=== PATIENT | male | born 1995 | race Caucasian/White ===

== ENCOUNTER → 2020-02-15 | Outpatient (REF) | payer SELFPAY | LOC: M SFHCLUC 08:55 | PROVIDERS: ATTEND Physician Assistant | DX: J02.9 Acute pharyngitis, unspecified (principal) ==

== ENCOUNTER 2020-07-12 23:21 | Emergency (ER) | payer OTHER, SELFPAY ==
[~2020-07-12] VITALS: Ht 175.3 cm; Wt 75.2 kg
[2020-07-12] MEDS ORDERED: diphenhydrAMINE 50MG/ML VIAL (J1200) IM ONE (23:30)
[2020-07-12] MEDS ORDERED: HALOPERIDOL 5MG/ML VIAL (J1630 PER 1) IM ONE (23:30)
[2020-07-12] MEDS ORDERED: LORazepam 2 MG/ML VIAL IM ONE (23:30)
[2020-07-12 23:36] LABS: HEMATOCRIT 50.2 % (42.0-52.0); HEMOGLOBIN 15.9 g/dl (13.5-17.5); MEAN CORPUSCULAR HGB CONC 31.7 g/dl (32.0-36.5); MEAN CORPUSCULAR VOLUME 85.2 fl (80.0-96.0); PLATELET COUNT, AUTOMATED 255 10^3/uL (150-450); RED BLOOD COUNT 5.89 10^6/uL (4.30-6.10); WHITE BLOOD COUNT 7.6 10^3/uL (4.0-10.0)
[2020-07-13 00:15] LABS: ACETAMINOPHEN LEVEL < 2.0 UG/ML (10.0-30.0); ALBUMIN 4.5 GM/DL (3.2-5.2); ALT/SGPT 46 U/L (12-78); BILIRUBIN,DIRECT 0.2 MG/DL (0.0-0.2); BILIRUBIN,TOTAL 0.5 MG/DL (0.2-1.0); BLOOD UREA NITROGEN 11 MG/DL (7-18); CALCIUM LEVEL 8.8 MG/DL (8.5-10.1); CARBON DIOXIDE LEVEL 27 MEQ/L (21-32); CHLORIDE LEVEL 106 MEQ/L (98-107); CREATININE FOR GFR 1.17 MG/DL (0.70-1.30); ETHYL ALCOHOL (ETHANOL) 0.248 % (0.000-0.010); GLOMERULAR FILTRATION RATE > 60.0 (>60); GLUCOSE, FASTING 99 MG/DL (70-100); POTASSIUM SERUM 3.9 MEQ/L (3.5-5.1); SALICYLATE LEVEL < 1.7 MG/DL (5.0-30.0); SODIUM LEVEL 144 MEQ/L (136-145); TOTAL PROTEIN 8.1 GM/DL (6.4-8.2)
[2020-07-13 01:41] LABS: AMPHETAMINES LEVEL URINE NEGATIVE (NEGATIVE); BARBITURATES URINE NEGATIVE (NEGATIVE); BENZODIAZEPINES URINE NEGATIVE (NEGATIVE); CANNABINOIDS URINE NEGATIVE (NEGATIVE); COCAINE METABOLITE URINE NEGATIVE (NEGATIVE); METHADONE URINE NEGATIVE (NEGATIVE); OPIATES URINE NEGATIVE (NEGATIVE); PHENCYCLIDINE URINE NEGATIVE (NEGATIVE)
[2020-07-13 12:40] VITALS: BP 118/61
== END 2020-07-13 12:45 | disposition home or self-care (01) ==
LOC: M ED 23:21
DX: F10.120 Alcohol abuse with intoxication, uncomplicated (principal); Z78.1 Physical restraint status
CPT/HCPCS: 36415; 51701; 80048; 80076; 80307; 84443; 85027; 96372; 99285; G0480; J1200; J1630; J2060

== ENCOUNTER 2020-12-29 21:22 | Emergency (ER) | payer OTHER ==
[~2020-12-29] VITALS: Ht 180.3 cm; Wt 81.7 kg
--- NOTE | 2020-12-30 00:18 | REPVR ---
PROCEDURE INFORMATION: Exam: US Duplex Right Lower Extremity Veins, Limited Exam date and time: 12/29/2020 11:10 PM Age: 25 years old Clinical indication: Pain; Leg, lower; Right; Additional info: Pain and discoloration, R/O dvt TECHNIQUE: Imaging protocol: Real-time Duplex ultrasound of the Right Lower Extremity with 2-D valenzuela scale, color Doppler flow and spectral waveform analysis with image documentation. Limited exam was focused on the right lower extremity veins. COMPARISON: No relevant prior studies available. FINDINGS: Right deep veins: Unremarkable. The common femoral, femoral, proximal profunda femoral and popliteal veins are patent without thrombus. Normal Doppler waveforms. Normal compressibility and/or augmentation response. No venous reflux. Right superficial veins: Unremarkable. Saphenofemoral junction is patent without thrombus. Soft tissues: Unremarkable. IMPRESSION: No evidence of deep vein thrombosis. Electronically signed by: Venu Rodrigues On 12/30/2020 00:18:25 AM
[2020-12-30 01:07] VITALS: BP 121/63
== END 2020-12-30 01:09 | disposition home or self-care (01) ==
LOC: M ED 21:22
DX: R22.41 Localized swelling, mass and lump, right lower limb (principal); Z86.718 Personal history of other venous thrombosis and embolism